=== PATIENT | male | born 1980 ===

== ENCOUNTER 2023-05-29 09:55 | Outpatient (OUT) | payer OTHER, SELFPAY ==
--- NOTE | 2023-05-29 09:57 | XR_ITS ---
[facility] [id number] Patient Name: ELLI FOFANA MRN: [id number] date: 1980 Sex: M Assigned Patient Location: RAD Current Patient Location: [facility] Accession/Order Number: [id number] Exam Date: 05/29/2023 09:56 Report Date: 05/29/2023 11:06 At the request of: SORAYA MARCUS Procedure: XR foot RT min 3V PROCEDURE: XR foot RT min 3V HISTORY: RIGHT FOOT PAIN ; acute right arch pain after running: History of plantar fasciitis COMPARISON: None. FINDINGS: BONES: 4 mm plantar spur. No fracture, acute abnormality, or significant arthropathy. No appreciable loss of plantar arch. SOFT TISSUES:No visible soft tissue swelling. EFFUSION:None visible. OTHER: Negative. XR/XR foot RT min 3V IMPRESSION: 1. No acute or specific findings to account for patient's symptoms. 2. Minimal degenerative changes. Electronically authenticated by: HUAN HALE Date: 05/29/2023 11:06
== END 2023-05-29 09:56 | disposition home or self-care (01) ==
PROVIDERS: Visit Provider Podiatrist Foot & Ankle Surgery
DX: M79.671 Pain in right foot (principal)
CPT/HCPCS: 73630